=== PATIENT | female | born 1940 | race African-American/Black ===

== ENCOUNTER 2016-11-22 03:50 | Outpatient (CLI) | END 2016-11-22 03:51 | LOC: AMBL 03:50 | PROVIDERS: ATTEND Family Medicine | DX: R40.4 Transient alteration of awareness (principal); E10.649 Type 1 diabetes mellitus with hypoglycemia without coma; R40.2421 Glasgow coma scale score 9-12, in the field [EMT or ambulance]; Z95.1 Presence of aortocoronary bypass graft ==